=== PATIENT | female | born 1965 | race Caucasian/White ===

== ENCOUNTER 2018-04-18 15:58 | Emergency (ER) | payer OTHER ==
[~2018-04-18] VITALS: Ht 180.3 cm; Wt 153.0 kg
[2018-04-18 16:03] VITALS: Ht 180.3 cm; Wt 153.0 kg
[2018-04-18 18:22] VITALS: BP 122/78
== END 2018-04-18 18:22 | disposition home or self-care (01) ==
LOC: ED 15:58
DX: S52.502A Unspecified fracture of the lower end of left radius, initial encounter for closed fracture (principal); G89.29 Other chronic pain; M54.9 Dorsalgia, unspecified; W18.30XA Fall on same level, unspecified, initial encounter; Y93.89 Activity, other specified; Y92.89 Other specified places as the place of occurrence of the external cause; Y99.8 Other external cause status